=== PATIENT | male | born 1980 | race Caucasian/White ===

== ENCOUNTER 2017-11-17 13:15 | Inpatient (IN) | payer MEDICAID, OTHER ==
[~2017-11-17] VITALS: Ht 175.3 cm; Wt 83.5 kg
[~2017-11-17 13:15] MED LIST: DIPH25 PO; DIVA500T52 PO; HALO5TAB23 PO; OLAN10TA3 PO
[2017-11-17 15:49] LABS: AMPHET/METH SCREEN,URINE POSITIVE (NEGATIVE); BARBITURATE SCREEN, URINE NEGATIVE (NEGATIVE); BENZODIAZEPINES SCREEN,URINE NEGATIVE (NEGATIVE); CANNABINOID SCREEN,URINE POSITIVE (NEGATIVE); COCAINE SCREEN,URINE NEGATIVE (NEGATIVE); METHADONE SCREEN, URINE NEGATIVE (NEGATIVE); OPIATE SCREEN,URINE NEGATIVE (NEGATIVE); PHENCYCLIDINE SCREEN,URINE NEGATIVE (NEGATIVE)
[2017-11-17 16:01] LABS: BASOPHILS % (AUTO) 0.6 % (0.0-2.0); EOSINOPHILS % (AUTO) 2.3 % (1.0-6.0); HEMOGLOBIN 17.5 g/dL (13.5-17.5); LYMPHOCYTES # (AUTO) 3.5 K/uL (1.0-4.8); LYMPHOCYTES % (AUTO) 41.2 % (22.0-44.0); MEAN CORPUSCULAR HEMOGLOBIN 35.6 pg (26.0-34.0); MEAN CORPUSCULAR VOLUME 102 fL (80-100); MONOCYTES # (AUTO) 0.9 K/uL (0.1-1.0); NEUTROPHILS # (AUTO) 3.8 K/uL (1.8-7.7); NEUTROPHILS % (AUTO) 44.9 % (40.0-70.0); PLATELET COUNT (AUTO) 192 K/uL (150-450); RED BLOOD CELL COUNT(AUTO) 4.92 MIL/uL (4.50-5.90); RED CELL DISTRIBUTION WIDTH 13.3 % (11.5-14.5)
[2017-11-17 16:21] LABS: ANION GAP 8 mmol/L (8-16); CARBON DIOXIDE 30 mmol/L (22-29); CHLORIDE 99 mmol/L (98-107); CREATININE 0.89 mg/dL (0.60-1.30); GLOMERULAR FILTR. RATE CALC > 60 mL/min (>60); GLUCOSE,RANDOM 87 mg/dL (70-110); POTASSIUM 4.2 mmol/L (3.5-5.1); SODIUM SERUM 137 mmol/L (136-145); UREA NITROGEN, BLOOD 10 mg/dL (7-18)
[2017-11-17 16:25] LABS: ALANINE AMINOTRANSFERASE 57 U/L (12-78); ALBUMIN 4.1 g/dL (3.4-5.0); ALKALINE PHOSPHATASE 74 U/L (46-116); ASPARTATE AMINOTRANSFERASE 37 U/L (15-37); BILIRUBIN,TOTAL 0.9 mg/dL (0.1-1.0); VALPROIC ACID 86 mcg/mL (50-100)
[2017-11-17] MEDS ORDERED: HALO10 PO (18:08)
[2017-11-17] MEDS ORDERED: HALOPERIDOL 5 MG TABLET PO ONE (18:15)
[2017-11-17] MEDS ORDERED: HALOPERIDOL 5 MG TABLET PO PRN (18:45)
[2017-11-17] MEDS ORDERED: ZOLPIDEM TARTRATE 10 MG TABLET PO PRN (18:45)
[2017-11-17 20:34] VITALS: BP 124/90
[2017-11-17] MEDS ORDERED: ALBUTEROL SULFATE HFA 90 MCG/PUFF 8 GM INHALER IH PRN (20:45)
[2017-11-17] MEDS ORDERED: DIVALPROEX SODIUM 500 MG ER TABLET PO SCH (21:00)
[2017-11-17] MEDS ORDERED: HALOPERIDOL 10 MG TABLET PO SCH (21:00)
[2017-11-17] MEDS ORDERED: PNEUMOCOCCAL VACCINE POLYVALENT 0.5 ML VIAL [PPSV23] IM ONE (21:15)
[2017-11-17] MEDS: DIVALPROEX SODIUM 500 MG ER TABLET PO SCH (22:50)
[2017-11-17] MEDS: HALOPERIDOL 10 MG TABLET PO SCH (22:51)
[2017-11-18 00:20] VITALS: BP 120/55
[2017-11-18] MEDS: LORazepam 2 MG TABLET PO PRN ×2 (00:30→17:04)
[2017-11-18 08:00] VITALS: BP 130/83
[2017-11-18] MEDS ORDERED: MAGNESIUM HYDROXIDE SUSPENSION 30 ML UDCUP PO PRN (08:00)
[2017-11-18] MEDS ORDERED: PETROLATUM,WHITE 71 GM JELLY TP PRN (08:00)
[2017-11-18] MEDS ORDERED: ACETAMINOPHEN 325 MG TABLET PO PRN (08:00)
[2017-11-18] MEDS ORDERED: ALBUTEROL SULFATE HFA 90 MCG/PUFF 8 GM INHALER IH PRN (08:00)
[2017-11-18] MEDS ORDERED: ONDANSETRON HCL 4 MG TABLET PO PRN (08:00)
[2017-11-18] MEDS ORDERED: IBUPROFEN 400 MG TABLET PO PRN (08:00)
[2017-11-18] MEDS ORDERED: MAG HYDROX/AL HYDROX/SIMETH ES 30 ML SUSPENSION UDCUP PO PRN (08:00)
[2017-11-18] MEDS ORDERED: DOCUSATE SODIUM 100 MG CAPSULE PO PRN (08:00)
[2017-11-18] MEDS ORDERED: NICOTINE 7 MG/24 HOUR PATCH TD SCH (09:00)
[2017-11-18] MEDS: HALOPERIDOL 10 MG TABLET PO SCH ×2 (09:32→20:27)
[2017-11-18] MEDS: OMEPRAZOLE 20 MG CAPSULE PO SCH (09:32)
[2017-11-18] MEDS: NICOTINE 14 MG/24 HOUR PATCH TD SCH (09:33)
[2017-11-18] MEDS: TRIHEXYPHENIDYL HCL 5 MG TABLET PO SCH ×2 (12:59→17:03)
[2017-11-18 16:19] VITALS: BP 120/72
[2017-11-18] MEDS: DIVALPROEX SODIUM 500 MG ER TABLET PO SCH (20:28)
[2017-11-19 06:53] VITALS: BP 118/72
[2017-11-19 08:29] VITALS: BP 122/79
[2017-11-19] MEDS: TRIHEXYPHENIDYL HCL 5 MG TABLET PO SCH ×3 (10:51→17:16)
[2017-11-19] MEDS: HALOPERIDOL 10 MG TABLET PO SCH ×2 (10:51→20:45)
[2017-11-19] MEDS: OMEPRAZOLE 20 MG CAPSULE PO SCH (10:51)
[2017-11-19] MEDS: NICOTINE 14 MG/24 HOUR PATCH TD SCH (10:54)
[2017-11-19 16:39] VITALS: BP 123/87
[2017-11-19] MEDS: DIVALPROEX SODIUM 500 MG ER TABLET PO SCH (20:45)
[2017-11-20 04:00] VITALS: BP 121/85
[2017-11-20] MEDS: OMEPRAZOLE 20 MG CAPSULE PO SCH (08:45)
[2017-11-20] MEDS: HALOPERIDOL 10 MG TABLET PO SCH ×2 (08:45→20:14)
[2017-11-20] MEDS: TRIHEXYPHENIDYL HCL 5 MG TABLET PO SCH ×3 (08:45→16:46)
[2017-11-20] MEDS: NICOTINE 14 MG/24 HOUR PATCH TD SCH (08:45)
[2017-11-20 08:50] VITALS: BP 121/84
[2017-11-20] MEDS: SULFAMETHOX/TRIMETH DS 800-160 MG/TABLET PO SCH ×2 (11:36→16:46)
[2017-11-20] MEDS: NEOMYCIN/BACITRACIN/POLYMYXIN B 30 GM OINTMENT TP SCH ×2 (14:36→16:46)
[2017-11-20 16:12] VITALS: BP 121/86
[2017-11-20] MEDS: LORazepam 2 MG TABLET PO PRN (16:49)
[2017-11-20] MEDS: DIVALPROEX SODIUM 500 MG ER TABLET PO SCH (20:14)
[2017-11-21 02:15] VITALS: BP 124/82
[2017-11-21 08:47] VITALS: BP 133/90
[2017-11-21] MEDS: TRIHEXYPHENIDYL HCL 5 MG TABLET PO SCH ×3 (09:25→16:18)
[2017-11-21] MEDS: HALOPERIDOL 10 MG TABLET PO SCH ×2 (09:25→20:05)
[2017-11-21] MEDS: OMEPRAZOLE 20 MG CAPSULE PO SCH (09:25)
[2017-11-21] MEDS: NEOMYCIN/BACITRACIN/POLYMYXIN B 30 GM OINTMENT TP SCH ×2 (09:25→16:18)
[2017-11-21] MEDS: SULFAMETHOX/TRIMETH DS 800-160 MG/TABLET PO SCH ×2 (09:25→16:18)
[2017-11-21] MEDS: NICOTINE 14 MG/24 HOUR PATCH TD SCH (09:29)
[2017-11-21 16:15] VITALS: BP 136/77
[2017-11-21] MEDS: DIVALPROEX SODIUM 500 MG ER TABLET PO SCH (20:05)
[2017-11-22 00:55] VITALS: BP 132/80
[2017-11-22 08:00] VITALS: BP 136/89
[2017-11-22] MEDS: NICOTINE 14 MG/24 HOUR PATCH TD SCH (08:09)
[2017-11-22] MEDS: SULFAMETHOX/TRIMETH DS 800-160 MG/TABLET PO SCH ×2 (08:09→16:58)
[2017-11-22] MEDS: TRIHEXYPHENIDYL HCL 5 MG TABLET PO SCH ×3 (08:10→16:58)
[2017-11-22] MEDS: HALOPERIDOL 10 MG TABLET PO SCH ×2 (08:10→20:44)
[2017-11-22] MEDS: LORazepam 2 MG TABLET PO PRN (08:10)
[2017-11-22] MEDS: NEOMYCIN/BACITRACIN/POLYMYXIN B 30 GM OINTMENT TP SCH ×2 (08:10→16:59)
[2017-11-22] MEDS: OMEPRAZOLE 20 MG CAPSULE PO SCH (08:10)
[2017-11-22 16:39] VITALS: BP 112/64
[2017-11-22] MEDS: DIVALPROEX SODIUM 500 MG ER TABLET PO SCH (20:45)
[2017-11-23 00:33] VITALS: BP 130/86
[2017-11-23 08:00] VITALS: BP 121/68
[2017-11-23] MEDS: HALOPERIDOL 10 MG TABLET PO SCH ×2 (09:08→20:12)
[2017-11-23] MEDS: SULFAMETHOX/TRIMETH DS 800-160 MG/TABLET PO SCH ×2 (09:08→16:16)
[2017-11-23] MEDS: TRIHEXYPHENIDYL HCL 5 MG TABLET PO SCH ×3 (09:08→16:17)
[2017-11-23] MEDS: NICOTINE 14 MG/24 HOUR PATCH TD SCH (09:08)
[2017-11-23] MEDS: OMEPRAZOLE 20 MG CAPSULE PO SCH (09:08)
[2017-11-23] MEDS: NEOMYCIN/BACITRACIN/POLYMYXIN B 30 GM OINTMENT TP SCH ×2 (09:09→16:17)
[2017-11-23 16:11] VITALS: BP 117/62
[2017-11-23] MEDS: DIVALPROEX SODIUM 500 MG ER TABLET PO SCH (20:12)
[2017-11-24 01:03] VITALS: BP 120/81
[2017-11-24 09:02] VITALS: BP 121/94
[2017-11-24] MEDS: TRIHEXYPHENIDYL HCL 5 MG TABLET PO SCH ×2 (09:03→12:15)
[2017-11-24] MEDS: NICOTINE 14 MG/24 HOUR PATCH TD SCH (09:03)
[2017-11-24] MEDS: HALOPERIDOL 10 MG TABLET PO SCH (09:03)
[2017-11-24] MEDS: OMEPRAZOLE 20 MG CAPSULE PO SCH (09:03)
[2017-11-24] MEDS: SULFAMETHOX/TRIMETH DS 800-160 MG/TABLET PO SCH (09:03)
[2017-11-24] MEDS: NEOMYCIN/BACITRACIN/POLYMYXIN B 30 GM OINTMENT TP SCH (09:03)
[2017-11-24] MEDS ORDERED: SULF1TAB42 PO (09:17)
[2017-11-24] MEDS ORDERED: OMEP20 PO (09:17)
[2017-11-24] MEDS ORDERED: TRIH5TAB2 PO (09:17)
== END 2017-11-24 13:30 | disposition home or self-care (01) | DRG 750 ==
LOC: EMS 13:21 → B2S 19:20 → EMS 19:49
PROVIDERS: ADMIT Psychiatry & Neurology Psychiatry; ATTEND Psychiatry & Neurology Psychiatry
DX: F20.0 Paranoid schizophrenia (principal); R45.851 Suicidal ideations; F32.9 Major depressive disorder, single episode, unspecified; F10.10 Alcohol abuse, uncomplicated; F12.90 Cannabis use, unspecified, uncomplicated; J44.9 Chronic obstructive pulmonary disease, unspecified; J45.909 Unspecified asthma, uncomplicated; K21.9 Gastro-esophageal reflux disease without esophagitis; L02.92 Furuncle, unspecified; F17.210 Nicotine dependence, cigarettes, uncomplicated; Z71.6 Tobacco abuse counseling; Z71.51 Drug abuse counseling and surveillance of drug abuser; Z71.41 Alcohol abuse counseling and surveillance of alcoholic; Z88.8 Allergy status to other drugs, medicaments and biological substances; Z28.21 Immunization not carried out because of patient refusal; Z81.8 Family history of other mental and behavioral disorders; Z79.51 Long term (current) use of inhaled steroids
CPT/HCPCS: 84443; 99285; G0480

== ENCOUNTER 2021-03-27 10:31 | Emergency (ER) | payer MEDICAID, OTHER ==
[~2021-03-27] VITALS: Ht 175.3 cm; Wt 77.3 kg
[~2021-03-27 10:31] MED LIST changes: -DIPH25 PO; +DIVA-80 PO; -DIVA500T52 PO; +HALO10 PO; -HALO5TAB23 PO; -OLAN10TA3 PO; +OMEP20 PO; +SULF1TAB42 PO; +TRIH5TAB4 PO
[2021-03-27 11:40] LABS: BASOPHILS % (AUTO) 0.4 % (0.0-2.0); EOSINOPHILS % (AUTO) 0.5 % (1.0-6.0); HEMOGLOBIN 14.2 g/dL (13.5-17.5); LYMPHOCYTES # (AUTO) 2.1 K/uL (1.0-4.8); LYMPHOCYTES % (AUTO) 18.6 % (22.0-44.0); MEAN CORPUSCULAR HEMOGLOBIN 35.9 pg (26.0-34.0); MEAN CORPUSCULAR HGB CONC 34.7 G/dL (31.0-37.0); MEAN CORPUSCULAR VOLUME 104 fL (80-100); MONOCYTES # (AUTO) 1.2 K/uL (0.1-1.0); MONOCYTES % (AUTO) 11.1 % (2.0-9.0); NEUTROPHILS # (AUTO) 7.7 K/uL (1.8-7.7); NEUTROPHILS % (AUTO) 69.4 % (40.0-70.0); PLATELET COUNT (AUTO) 204 K/uL (150-450); RED BLOOD CELL COUNT(AUTO) 3.96 MIL/uL (4.50-5.90); RED CELL DISTRIBUTION WIDTH 13.7 % (11.5-14.5)
[2021-03-27 11:45] VITALS: BP 135/87
[2021-03-27 11:48] LABS: ANION GAP 5 mmol/L (8-16); CALCIUM, TOTAL 8.7 mg/dL (8.8-10.5); CARBON DIOXIDE 31 mmol/L (22-29); CHLORIDE 101 mmol/L (98-107); CREATININE 0.78 mg/dL (0.60-1.30); GLOMERULAR FILTR. RATE CALC > 60 mL/min (>60); GLUCOSE,RANDOM 118 mg/dL (70-110); POTASSIUM 4.3 mmol/L (3.5-5.1); SODIUM SERUM 137 mmol/L (136-145); UREA NITROGEN, BLOOD 11 mg/dL (7-18)
[2021-03-27 11:54] LABS: ALANINE AMINOTRANSFERASE 29 U/L (12-78); ALBUMIN 3.6 g/dL (3.4-5.0); ALKALINE PHOSPHATASE 55 U/L (46-116); ASPARTATE AMINOTRANSFERASE 23 U/L (15-37); BILIRUBIN,TOTAL 0.3 mg/dL (0.1-1.0); TOTAL PROTEIN, SERUM 6.7 g/dL (6.4-8.2)
[2021-03-27 14:29] LABS: AMPHET/METH SCREEN,URINE POSITIVE (NEGATIVE); BARBITURATE SCREEN, URINE NEGATIVE (NEGATIVE); BENZODIAZEPINES SCREEN,URINE NEGATIVE (NEGATIVE); CANNABINOID SCREEN,URINE POSITIVE (NEGATIVE); COCAINE SCREEN,URINE NEGATIVE (NEGATIVE); METHADONE SCREEN, URINE NEGATIVE (NEGATIVE); OPIATE SCREEN,URINE NEGATIVE (NEGATIVE)
[2021-03-27 14:30] LABS: PHENCYCLIDINE SCREEN,URINE NEGATIVE (NEGATIVE)
== END 2021-03-27 14:03 | disposition home or self-care (01) ==
LOC: EMS 10:47
DX: F22 Delusional disorders (principal); F17.210 Nicotine dependence, cigarettes, uncomplicated; F20.9 Schizophrenia, unspecified; F12.90 Cannabis use, unspecified, uncomplicated; F15.90 Other stimulant use, unspecified, uncomplicated; Z79.899 Other long term (current) drug therapy; Z88.8 Allergy status to other drugs, medicaments and biological substances
CPT/HCPCS: 36415; 71045; 80053; 80307; 85025; 93005; 99285; G0480

== ENCOUNTER 2023-11-09 12:40 | Inpatient (IN) | payer OTHER ==
[~2023-11-09] VITALS: Ht 172.7 cm; Wt 68.6 kg
[~2023-11-09 12:40] MED LIST changes: -DIVA-80 PO; +DIVA500T53 PO; -HALO10 PO; +HALO10TA21 PO
[2023-11-09 16:16] LABS: BASOPHILS % (AUTO) 0.3 % (0.0-2.0); EOSINOPHILS % (AUTO) 3.1 % (1.0-6.0); HEMATOCRIT 41.5 % (41-53); LYMPHOCYTES # (AUTO) 1.1 K/uL (1.0-4.8); LYMPHOCYTES % (AUTO) 9.5 % (22.0-44.0); MEAN CORPUSCULAR HEMOGLOBIN 33.8 pg (26.0-34.0); MEAN CORPUSCULAR HGB CONC 33.7 G/dL (31.0-37.0); MEAN CORPUSCULAR VOLUME 100 fL (80-100); MONOCYTES # (AUTO) 1.7 K/uL (0.1-1.0); MONOCYTES % (AUTO) 15.1 % (2.0-9.0); NEUTROPHILS # (AUTO) 8.3 K/uL (1.8-7.7); PLATELET COUNT (AUTO) 192 K/uL (150-450); RED BLOOD CELL COUNT(AUTO) 4.14 MIL/uL (4.50-5.90); RED CELL DISTRIBUTION WIDTH 13.9 % (11.5-14.5); WHITE BLOOD COUNT (AUTO) 11.5 K/uL (4.5-11.0)
[2023-11-09 16:26] LABS: ALCOHOL, BLOOD (SERUM) < 3 mg/dL (0-10)
[2023-11-09 16:41] LABS: ALANINE AMINOTRANSFERASE 21 U/L (12-78); ALBUMIN 3.2 g/dL (3.4-5.0); ALKALINE PHOSPHATASE 69 U/L (46-116); ASPARTATE AMINOTRANSFERASE 25 U/L (15-37); CALCIUM, TOTAL 9.5 mg/dL (8.8-10.5); CARBON DIOXIDE 31 mmol/L (22-29); CHLORIDE 92 mmol/L (98-107); CREATININE 0.75 mg/dL (0.60-1.30); GLOMERULAR FILTR. RATE CALC > 60 mL/min (>60); GLUCOSE,RANDOM 89 mg/dL (70-110); POTASSIUM 3.8 mmol/L (3.5-5.1); SODIUM SERUM 126 mmol/L (136-145); TOTAL PROTEIN, SERUM 7.3 g/dL (6.4-8.2); UREA NITROGEN, BLOOD 12 mg/dL (7-18)
[2023-11-09 16:47] LABS: ANION GAP 3 mmol/L (8-16)
[2023-11-09] MEDS: SODIUM CHLORIDE 0.9% 1,000 ML IV ONE (17:10)
[2023-11-09 18:52] LABS: RBC MORPHOLOGY COMMENT ABNORMAL RBC MORPH
[2023-11-09] MEDS ORDERED: BENZ-247 PO (19:04)
[2023-11-09 20:02] LABS: TROPONIN I-HIGH SENSITIVITY 9 ng/L (<76)
[2023-11-09] MEDS ORDERED: ONDANSETRON HCL 4 MG/2 ML VIAL IVP PRN (23:45)
[2023-11-10 00:13] LABS: BASOPHILS % (AUTO) 0.3 % (0.0-2.0); HEMATOCRIT 38.9 % (41-53); HEMOGLOBIN 13.2 g/dL (13.5-17.5); LYMPHOCYTES # (AUTO) 1.4 K/uL (1.0-4.8); LYMPHOCYTES % (AUTO) 15.8 % (22.0-44.0); MEAN CORPUSCULAR HEMOGLOBIN 34.1 pg (26.0-34.0); MEAN CORPUSCULAR VOLUME 100 fL (80-100); MONOCYTES # (AUTO) 1.3 K/uL (0.1-1.0); MONOCYTES % (AUTO) 14.7 % (2.0-9.0); NEUTROPHILS # (AUTO) 5.8 K/uL (1.8-7.7); NEUTROPHILS % (AUTO) 65.2 % (40.0-70.0); PLATELET COUNT (AUTO) 184 K/uL (150-450); RED BLOOD CELL COUNT(AUTO) 3.88 MIL/uL (4.50-5.90); RED CELL DISTRIBUTION WIDTH 13.7 % (11.5-14.5)
[2023-11-10 02:10] LABS: APPEARANCE,URINE CLEAR (CLEAR); BILIRUBIN,URINE NEGATIVE (NEGATIVE); COLOR,URINE LIGHT ORANGE (YELLOW); GLUCOSE, URINE (UA) TRACE mg/dL (NEGATIVE); KETONES,URINE TRACE mg/dL (NEGATIVE); LEUKOCYTE ESTERASE ,URINE NEGATIVE (NEGATIVE); NITRATE,URINE NEGATIVE (NEGATIVE); OCCULT BLOOD,URINE NEGATIVE (NEGATIVE); PROTEIN,URINE TRACE mg/dL (NEGATIVE)
[2023-11-10 02:16] LABS: ALCOHOL, URINE DRUG SCREEN NEGATIVE (NEGATIVE); AMPHET/METH SCREEN,URINE POSITIVE (NEGATIVE); BARBITURATE SCREEN, URINE NEGATIVE (NEGATIVE); BENZODIAZEPINES SCREEN,URINE NEGATIVE (NEGATIVE); CANNABINOID SCREEN,URINE POSITIVE (NEGATIVE); COCAINE SCREEN,URINE NEGATIVE (NEGATIVE); METHADONE SCREEN, URINE NEGATIVE (NEGATIVE); OPIATE SCREEN,URINE NEGATIVE (NEGATIVE); PHENCYCLIDINE SCREEN,URINE NEGATIVE (NEGATIVE)
[2023-11-10 04:17] VITALS: BP 147/97; PULSE 70; RESP 20; TEMP 98.3
[2023-11-10 06:22] LABS: BASOPHILS % (AUTO) 0.3 % (0.0-2.0); EOSINOPHILS % (AUTO) 3.5 % (1.0-6.0); HEMOGLOBIN 14.1 g/dL (13.5-17.5); LYMPHOCYTES # (AUTO) 1.2 K/uL (1.0-4.8); LYMPHOCYTES % (AUTO) 12.3 % (22.0-44.0); MEAN CORPUSCULAR HEMOGLOBIN 34.4 pg (26.0-34.0); MEAN CORPUSCULAR HGB CONC 34.4 G/dL (31.0-37.0); MEAN CORPUSCULAR VOLUME 100 fL (80-100); MONOCYTES # (AUTO) 1.4 K/uL (0.1-1.0); MONOCYTES % (AUTO) 14.6 % (2.0-9.0); NEUTROPHILS # (AUTO) 6.5 K/uL (1.8-7.7); NEUTROPHILS % (AUTO) 69.3 % (40.0-70.0); PLATELET COUNT (AUTO) 208 K/uL (150-450); RED CELL DISTRIBUTION WIDTH 13.6 % (11.5-14.5); WHITE BLOOD COUNT (AUTO) 9.4 K/uL (4.5-11.0)
[2023-11-10 06:36] LABS: ANION GAP 8 mmol/L (8-16); CALCIUM, TOTAL 9.6 mg/dL (8.8-10.5); CARBON DIOXIDE 28 mmol/L (22-29); CHLORIDE 93 mmol/L (98-107); CREATININE 0.65 mg/dL (0.60-1.30); GLOMERULAR FILTR. RATE CALC > 60 mL/min (>60); GLUCOSE,RANDOM 86 mg/dL (70-110); SODIUM SERUM 129 mmol/L (136-145); UREA NITROGEN, BLOOD 10 mg/dL (7-18)
[2023-11-10 08:11] VITALS: BP 142/92; PULSE 75; RESP 19; TEMP 97.8
[2023-11-10] MEDS: ACETAMINOPHEN 325 MG TABLET PO PRN (09:20)
[2023-11-10] MEDS: DOCUSATE SODIUM 100 MG CAPSULE PO SCH (09:20)
[2023-11-10 11:23] VITALS: BP 132/94; PULSE 86; RESP 18; TEMP 98
[2023-11-10 12:23] LABS: BASOPHILS % (AUTO) 0.3 % (0.0-2.0); EOSINOPHILS % (AUTO) 2.3 % (1.0-6.0); HEMATOCRIT 39.9 % (41-53); HEMOGLOBIN 13.5 g/dL (13.5-17.5); LYMPHOCYTES # (AUTO) 1.2 K/uL (1.0-4.8); MEAN CORPUSCULAR HEMOGLOBIN 33.8 pg (26.0-34.0); MEAN CORPUSCULAR HGB CONC 33.9 G/dL (31.0-37.0); MEAN CORPUSCULAR VOLUME 100 fL (80-100); MONOCYTES # (AUTO) 1.7 K/uL (0.1-1.0); MONOCYTES % (AUTO) 16.4 % (2.0-9.0); NEUTROPHILS # (AUTO) 7.1 K/uL (1.8-7.7); PLATELET COUNT (AUTO) 191 K/uL (150-450); RED BLOOD CELL COUNT(AUTO) 4.01 MIL/uL (4.50-5.90); RED CELL DISTRIBUTION WIDTH 13.5 % (11.5-14.5); WHITE BLOOD COUNT (AUTO) 10.3 K/uL (4.5-11.0)
[2023-11-10 15:57] VITALS: BP 135/90; PULSE 76; RESP 19; TEMP 97.7
[2023-11-10 20:00] VITALS: BP 131/65; PULSE 79; RESP 18; TEMP 98.1
[2023-11-11 00:29] LABS: BASOPHILS % (AUTO) 0.6 % (0.0-2.0); EOSINOPHILS % (AUTO) 4.7 % (1.0-6.0); HEMATOCRIT 40.1 % (41-53); HEMOGLOBIN 13.8 g/dL (13.5-17.5); LYMPHOCYTES # (AUTO) 1.6 K/uL (1.0-4.8); LYMPHOCYTES % (AUTO) 15.5 % (22.0-44.0); MEAN CORPUSCULAR HEMOGLOBIN 34.2 pg (26.0-34.0); MEAN CORPUSCULAR HGB CONC 34.3 G/dL (31.0-37.0); MEAN CORPUSCULAR VOLUME 100 fL (80-100); MONOCYTES # (AUTO) 1.6 K/uL (0.1-1.0); MONOCYTES % (AUTO) 16.3 % (2.0-9.0); NEUTROPHILS # (AUTO) 6.3 K/uL (1.8-7.7); NEUTROPHILS % (AUTO) 62.9 % (40.0-70.0); PLATELET COUNT (AUTO) 181 K/uL (150-450); RED BLOOD CELL COUNT(AUTO) 4.02 MIL/uL (4.50-5.90); RED CELL DISTRIBUTION WIDTH 13.4 % (11.5-14.5)
[2023-11-11 04:45] VITALS: BP 126/93; PULSE 85; RESP 20; TEMP 97.7
[2023-11-11 09:12] VITALS: BP 129/90; PULSE 91; RESP 18; TEMP 97.2
[2023-11-11 16:44] VITALS: BP 127/86; PULSE 76; RESP 20; TEMP 98
[2023-11-11 19:30] VITALS: BP 145/97; PULSE 81; RESP 20; TEMP 97.5
[2023-11-12 04:10] VITALS: BP 140/97; PULSE 79; RESP 20; TEMP 97.7
[2023-11-12] MEDS: BENZTROPINE MESYLATE 1 MG TABLET PO SCH (09:06)
[2023-11-12] MEDS: HALOPERIDOL 10 MG TABLET PO SCH ×2 (09:36→21:39)
[2023-11-12 09:45] VITALS: BP 130/96; PULSE 88; RESP 19; TEMP 98.1
[2023-11-12 09:56] LABS: BASOPHILS % (AUTO) 0.3 % (0.0-2.0); HEMATOCRIT 41.9 % (41-53); HEMOGLOBIN 14.1 g/dL (13.5-17.5); LYMPHOCYTES # (AUTO) 1.3 K/uL (1.0-4.8); LYMPHOCYTES % (AUTO) 11.6 % (22.0-44.0); MEAN CORPUSCULAR HEMOGLOBIN 33.6 pg (26.0-34.0); MEAN CORPUSCULAR HGB CONC 33.6 G/dL (31.0-37.0); MEAN CORPUSCULAR VOLUME 100 fL (80-100); MONOCYTES # (AUTO) 1.8 K/uL (0.1-1.0); MONOCYTES % (AUTO) 15.9 % (2.0-9.0); NEUTROPHILS # (AUTO) 7.9 K/uL (1.8-7.7); NEUTROPHILS % (AUTO) 69.2 % (40.0-70.0); PLATELET COUNT (AUTO) 290 K/uL (150-450); RED BLOOD CELL COUNT(AUTO) 4.19 MIL/uL (4.50-5.90); RED CELL DISTRIBUTION WIDTH 13.7 % (11.5-14.5); WHITE BLOOD COUNT (AUTO) 11.4 K/uL (4.5-11.0)
[2023-11-12 10:13] LABS: CHLORIDE 91 mmol/L (98-107); POTASSIUM 4.5 mmol/L (3.5-5.1); SODIUM SERUM 126 mmol/L (136-145)
[2023-11-12 10:24] LABS: ALKALINE PHOSPHATASE 76 U/L (46-116); ANION GAP 5 mmol/L (8-16); BILIRUBIN,TOTAL 0.9 mg/dL (0.1-1.0); CALCIUM, TOTAL 9.2 mg/dL (8.8-10.5); CARBON DIOXIDE 30 mmol/L (22-29); GLOMERULAR FILTR. RATE CALC > 60 mL/min (>60); GLUCOSE,RANDOM 74 mg/dL (70-110); UREA NITROGEN, BLOOD 13 mg/dL (7-18)
[2023-11-12 10:25] LABS: ALANINE AMINOTRANSFERASE 43 U/L (12-78); ALBUMIN 3.5 g/dL (3.4-5.0); ASPARTATE AMINOTRANSFERASE 28 U/L (15-37); TOTAL PROTEIN, SERUM 7.8 g/dL (6.4-8.2)
[2023-11-12] MEDS: HALOPERIDOL LACTATE 5 MG/ML VIAL IM ONE (10:30)
[2023-11-12] MEDS: DiphenhydrAMINE HCL 50 MG/ML VIAL IM ONE (10:39)
[2023-11-12] MEDS: LORazepam 2 MG/ML VIAL IM ONE (10:39)
[2023-11-12] MEDS: DIVALPROEX SODIUM 500 MG ER TABLET PO SCH (13:54)
[2023-11-12] MEDS ORDERED: SODIUM CHLORIDE 0.9% 2,000 ML ONE (14:37)
[2023-11-12] MEDS ORDERED: HALOPERIDOL LACTATE 5 MG/ML VIAL IM PRN (16:45)
[2023-11-12] MEDS: HALOPERIDOL LACTATE 5 MG/ML VIAL IVP PRN (17:16)
[2023-11-12] MEDS: LORazepam 2 MG/ML VIAL IVP PRN (17:17)
[2023-11-12 20:20] VITALS: BP 139/85; PULSE 94; RESP 18; TEMP 97.5
[2023-11-12] MEDS ORDERED: DIVALPROEX SODIUM 500 MG ER TABLET PO SCH (21:00)
[2023-11-12] MEDS: BENZTROPINE MESYLATE 2 MG TABLET PO SCH (21:39)
[2023-11-13 04:58] VITALS: BP 115/81; PULSE 83; RESP 18; TEMP 97.5
[2023-11-13 08:23] VITALS: BP 109/81; PULSE 92; RESP 19; TEMP 98.9
[2023-11-13 15:38] VITALS: BP 128/82; PULSE 82; RESP 19; TEMP 98.1
[2023-11-13] MEDS: SODIUM CHLORIDE 1 GM TABLET PO SCH (16:04)
[2023-11-13 19:23] VITALS: BP 124/85; PULSE 74; RESP 18; TEMP 98.1
[2023-11-14 05:01] VITALS: BP 134/73; PULSE 88; RESP 18; TEMP 97.4
[2023-11-14 07:32] VITALS: BP 120/87; PULSE 94; RESP 18; TEMP 97.6
[2023-11-14 07:38] LABS: BASOPHILS % (AUTO) 0.4 % (0.0-2.0); EOSINOPHILS % (AUTO) 4.1 % (1.0-6.0); HEMATOCRIT 44.9 % (41-53); HEMOGLOBIN 15.5 g/dL (13.5-17.5); LYMPHOCYTES # (AUTO) 1.9 K/uL (1.0-4.8); LYMPHOCYTES % (AUTO) 16.5 % (22.0-44.0); MEAN CORPUSCULAR HEMOGLOBIN 34.7 pg (26.0-34.0); MEAN CORPUSCULAR HGB CONC 34.4 G/dL (31.0-37.0); MEAN CORPUSCULAR VOLUME 101 fL (80-100); MONOCYTES # (AUTO) 1.3 K/uL (0.1-1.0); MONOCYTES % (AUTO) 10.7 % (2.0-9.0); NEUTROPHILS % (AUTO) 68.3 % (40.0-70.0); PLATELET COUNT (AUTO) 293 K/uL (150-450); RED BLOOD CELL COUNT(AUTO) 4.45 MIL/uL (4.50-5.90); RED CELL DISTRIBUTION WIDTH 13.5 % (11.5-14.5); WHITE BLOOD COUNT (AUTO) 11.8 K/uL (4.5-11.0)
[2023-11-14 07:48] LABS: ALANINE AMINOTRANSFERASE 57 U/L (12-78); ALBUMIN 3.4 g/dL (3.4-5.0); ALKALINE PHOSPHATASE 89 U/L (46-116); ANION GAP 8 mmol/L (8-16); ASPARTATE AMINOTRANSFERASE 35 U/L (15-37); CALCIUM, TOTAL 9.9 mg/dL (8.8-10.5); CARBON DIOXIDE 27 mmol/L (22-29); CHLORIDE 90 mmol/L (98-107); CREATININE 0.62 mg/dL (0.60-1.30); GLOMERULAR FILTR. RATE CALC > 60 mL/min (>60); GLUCOSE,RANDOM 87 mg/dL (70-110); POTASSIUM 4.4 mmol/L (3.5-5.1); SODIUM SERUM 125 mmol/L (136-145); TOTAL PROTEIN, SERUM 8.2 g/dL (6.4-8.2); UREA NITROGEN, BLOOD 14 mg/dL (7-18)
[2023-11-14 07:53] LABS: RBC MORPHOLOGY COMMENT ABNORMAL RBC MORPH
[2023-11-14] MEDS: LORazepam 2 MG/ML VIAL IM PRN (11:34)
[2023-11-14] MEDS ORDERED: GADOTERATE MEGLUMINE 10 MMOL/20 ML VIAL IVP ONE (11:51)
[2023-11-14] MEDS: TOLVAPTAN 15 MG TABLET PO ONE (14:51)
[2023-11-14 17:27] VITALS: BP 128/95; PULSE 101; RESP 18; TEMP 97.6
[2023-11-14 19:15] VITALS: BP 127/73; PULSE 95; RESP 20; TEMP 97.4
[2023-11-15 05:00] VITALS: BP 118/74; PULSE 85; RESP 18; TEMP 97.6
[2023-11-15 07:06] LABS: BASOPHILS % (AUTO) 0.3 % (0.0-2.0); EOSINOPHILS % (AUTO) 2.3 % (1.0-6.0); HEMATOCRIT 44.4 % (41-53); LYMPHOCYTES # (AUTO) 1.5 K/uL (1.0-4.8); LYMPHOCYTES % (AUTO) 13.5 % (22.0-44.0); MEAN CORPUSCULAR HEMOGLOBIN 33.7 pg (26.0-34.0); MEAN CORPUSCULAR HGB CONC 33.9 G/dL (31.0-37.0); MEAN CORPUSCULAR VOLUME 99 fL (80-100); MONOCYTES # (AUTO) 1.5 K/uL (0.1-1.0); MONOCYTES % (AUTO) 13.7 % (2.0-9.0); NEUTROPHILS # (AUTO) 7.8 K/uL (1.8-7.7); NEUTROPHILS % (AUTO) 70.2 % (40.0-70.0); PLATELET COUNT (AUTO) 374 K/uL (150-450); RED BLOOD CELL COUNT(AUTO) 4.46 MIL/uL (4.50-5.90); RED CELL DISTRIBUTION WIDTH 13.6 % (11.5-14.5); WHITE BLOOD COUNT (AUTO) 11.2 K/uL (4.5-11.0)
[2023-11-15 07:13] VITALS: BP 126/78; PULSE 90; RESP 18; TEMP 97.9
[2023-11-15 07:30] LABS: ALANINE AMINOTRANSFERASE 46 U/L (12-78); ALBUMIN 3.4 g/dL (3.4-5.0); ALKALINE PHOSPHATASE 92 U/L (46-116); ANION GAP 6 mmol/L (8-16); ASPARTATE AMINOTRANSFERASE 21 U/L (15-37); CALCIUM, TOTAL 10.1 mg/dL (8.8-10.5); CARBON DIOXIDE 31 mmol/L (22-29); CHLORIDE 96 mmol/L (98-107); CREATININE 0.65 mg/dL (0.60-1.30); GLOMERULAR FILTR. RATE CALC > 60 mL/min (>60); GLUCOSE,RANDOM 88 mg/dL (70-110); POTASSIUM 4.4 mmol/L (3.5-5.1); SODIUM SERUM 133 mmol/L (136-145); UREA NITROGEN, BLOOD 12 mg/dL (7-18)
[2023-11-15] MEDS ORDERED: DIVA500T53 PO (12:16)
[2023-11-15] MEDS ORDERED: HALO10TA21 PO (12:17)
[2023-11-15] MEDS ORDERED: ACET-2247 PO (12:19)
[2023-11-15] MEDS ORDERED: BENZ2TAB84 PO (12:25)
== END 2023-11-15 12:55 | disposition home or self-care (01) | DRG 347 ==
LOC: EMS 12:40 → EDH 11-10 00:40 → 5N 11-10 02:00 → 6S 11-10 22:54
PROVIDERS: ADMIT Internal Medicine; ATTEND Internal Medicine
DX: S32.039A Unspecified fracture of third lumbar vertebra, initial encounter for closed fracture (principal); S27.1XXA Traumatic hemothorax, initial encounter; E22.2 Syndrome of inappropriate secretion of antidiuretic hormone; S27.322A Contusion of lung, bilateral, initial encounter; D72.829 Elevated white blood cell count, unspecified; F20.9 Schizophrenia, unspecified; F12.10 Cannabis abuse, uncomplicated; F15.10 Other stimulant abuse, uncomplicated; F17.210 Nicotine dependence, cigarettes, uncomplicated; F19.10 Other psychoactive substance abuse, uncomplicated; S05.11XA Contusion of eyeball and orbital tissues, right eye, initial encounter; Y08.89XA Assault by other specified means, initial encounter; Y93.89 Activity, other specified; Y92.89 Other specified places as the place of occurrence of the external cause; Y99.8 Other external cause status; Z79.899 Other long term (current) drug therapy; Z88.8 Allergy status to other drugs, medicaments and biological substances
CPT/HCPCS: 70450; 70486; 71045; 71250; 72125; 72128; 72131; 72158; 80048; 80053; 80307; 81003; 83735; 83930; 83935; 84300; 84443; 84484; 85025; 96360; 97116; 97162; 97163; 97165; 97530; 97535; 99291; G0480; J1200; J1630; J2060; J7030; 36415-L1; 36415-TC